=== PATIENT | female | born 1935 | race Caucasian/White ===

== ENCOUNTER → 2017-01-24 | Outpatient (CLI) | payer OTHER ==
[~2017-01-24] MED LIST: ASPIRIN81 MG PO; CALCIUM 500 +1 EAC5 PO; ENALAPRIL MALEA20 MG PO; FISH OIL500 M1 PO; HCTZ PO; LIPITOR20 MG PO
== END ==
LOC: ULTRA 09:19
DX: I70.0 Atherosclerosis of aorta (principal)

== ENCOUNTER → 2017-02-03 | Outpatient (CLI) | payer OTHER ==
[2017-02-03 10:51] LABS: CREATININE 0.9 mg/dL (0.6-1.0)
== END ==
LOC: CAT 07:22
PROVIDERS: Family Medicine
DX: K76.89 Other specified diseases of liver (principal); D18.09 Hemangioma of other sites; I70.0 Atherosclerosis of aorta; M47.896 Other spondylosis, lumbar region